=== PATIENT | female | born 1945 | race Caucasian/White ===

== ENCOUNTER → 2018-02-03 | Outpatient (CLI) | payer OTHER ==
[~2018-02-03] MED LIST: ATOR40TA71 PO; FAMO-135 PO; GLIM2TAB3 PO; LISI1TAB11 PO; METF10004 PO; METO-391 PO
== END | disposition home or self-care (01) ==
LOC: SHCH 08:37
PROVIDERS: ATTEND Internal Medicine Cardiovascular Disease
DX: I10 Essential (primary) hypertension (principal); I35.1 Nonrheumatic aortic (valve) insufficiency; Z95.0 Presence of cardiac pacemaker
CPT/HCPCS: 93306

== ENCOUNTER → 2018-04-07 | Outpatient (CLI) | payer OTHER | END | disposition home or self-care (01) | LOC: RAH 08:33 | PROVIDERS: ATTEND Family Medicine | DX: Z12.31 Encounter for screening mammogram for malignant neoplasm of breast (principal) | CPT/HCPCS: 77067 ==

== ENCOUNTER → 2019-05-25 | Outpatient (CLI) | payer OTHER ==
[~2019-05-25] MED LIST changes: +METF-446 PO; -METF10004 PO
== END | disposition home or self-care (01) ==
LOC: RAH 13:52
PROVIDERS: ATTEND Family Medicine
DX: Z12.31 Encounter for screening mammogram for malignant neoplasm of breast (principal)
CPT/HCPCS: 77067

== ENCOUNTER → 2019-06-22 | Outpatient (CLI) | payer OTHER | END | disposition home or self-care (01) | LOC: SHCH 15:18 | PROVIDERS: ATTEND Internal Medicine Cardiovascular Disease | DX: I35.8 Other nonrheumatic aortic valve disorders (principal) | CPT/HCPCS: 93306 ==

== ENCOUNTER → 2019-09-17 | Outpatient (CLI) | payer OTHER ==
[~2019-09-17] MED LIST changes: +ASPI-1012 PO; +CALC-866 PO; -GLIM2TAB3 PO; +GLIM2TAB4 PO; -LISI1TAB11 PO; +LISI1TAB28 PO
== END | disposition home or self-care (01) ==
LOC: SHCH 10:43
PROVIDERS: ATTEND Internal Medicine Cardiovascular Disease
DX: I65.23 Occlusion and stenosis of bilateral carotid arteries (principal)
CPT/HCPCS: 93880

== ENCOUNTER → 2019-09-20 | Outpatient (CLI) | payer OTHER ==
[~2019-09-20] VITALS: Ht 170.2 cm; Wt 90.7 kg
[~2019-09-20] MED LIST changes: -ASPI-1012 PO; -CALC-866 PO; +REGADENOSON 0.4 MG/5 ML PF SYG IVP SCH
== END | disposition home or self-care (01) ==
LOC: SHCH 09:21
PROVIDERS: ATTEND Internal Medicine Cardiovascular Disease
DX: R94.31 Abnormal electrocardiogram [ECG] [EKG] (principal)
CPT/HCPCS: 78452; 93017; 96374; A9500 ×2; J2785

== ENCOUNTER 2019-10-04 05:54 | Day surgery (SDC) | payer OTHER ==
[2019-10-02 12:02] VITALS: BP 146/62
[2019-10-02 12:05] LABS: BASOPHILS % (AUTO) 0.7 % (0.0-5.0); EOSINOPHILS % (AUTO) 1.6 % (0.0-8.0); HEMATOCRIT 38.4 % (36-48); LYMPHOCYTES % (AUTO) 23.1 % (21.0-51.0); MEAN CORPUSCULAR HEMOGLOBIN 31.9 pg (27.0-33.0); MEAN CORPUSCULAR HGB CONC 34.6 g/dL (32.0-36.0); MEAN CORPUSCULAR VOLUME 92.1 fL (79-99); MONOCYTES % (AUTO) 6.8 % (3.0-13.0); NEUTROPHILS % (AUTO) 67.8 % (40.0-77.0); PLATELET COUNT (AUTO) 126 K/uL (130-400); RED BLOOD CELL COUNT(AUTO) 4.17 MIL/uL (4.00-5.50); RED CELL DISTRIBUTION WIDTH 13.1 % (11.0-15.5); WHITE BLOOD COUNT (AUTO) 8.4 K/uL (4.8-10.8)
[2019-10-02 12:23] LABS: CREATININE 0.9 mg/dL (0.5-1.5); POTASSIUM 3.9 mmol/L (3.5-5.1)
[2019-10-02 12:28] LABS: INR 1.02 (0.85-1.15); PARTIAL THROMBOPLASTIN TIME 26.6 SEC (26.3-35.5); PROTHROMBIN TIME 10.7 SEC (9.6-11.6)
--- NOTE | 2019-10-03 11:46 | NUR ---
LABS ABNORMAL PLT REPORTED TO KALINA OZUNA, NO FURTHER ORDERS GIVEN, OK TO PROCEED WITH PLANNED PROCEDURE
[~2019-10-04] VITALS: Ht 168.9 cm; Wt 89.4 kg
[2019-10-04] VITALS (10 sets, daily range): BP systolic 113–161; BP diastolic 43–73
[~2019-10-04 05:54] MED LIST changes: +ASPI-1012 PO; +CALC-866 PO; -FAMO-135 PO; -GLIM2TAB4 PO; -REGADENOSON 0.4 MG/5 ML PF SYG IVP SCH; +SODIUM CHLORIDE 0.9% 1000ML 1,000 ML IV SCH
--- NOTE | 2019-10-04 06:15 | NUR ---
PRE-PROCEDURE RECEIVED FROM HOME VIA AMBULATING TO DAY 15 FOR SCHEDULED DUAL PPM CHANGEOUT. AWAKE IN NO ACUTE DISTRESS. DENIES PAIN. CONNECTED TO CONTINUOUS CARDIOPULMONARY MONITORING. SIDE RAILS UP X2, BED IN LOWEST POSITION, AND CALL LIGHT W/IN REACH.
--- NOTE | 2019-10-04 07:15 | NUR ---
PROCEDURE TRANSFERRED TO TRASH COLLECTOR TRUCK DRIVER VIA BED FOR DUAL PPM CHANGEOUT BY CASSIE GARCIA RN.
[2019-10-04] MEDS ORDERED: MEPERIDINE-PF 25 MG/ML SYG ONE ×3 (07:32→08:31)
[2019-10-04] MEDS ORDERED: CEFAZOLIN SODIUM 1 GM VIAL ONE ×2 (07:32→07:33)
[2019-10-04] MEDS ORDERED: LIDOCAINE HCL 1% MDV 50ML VIAL ONE (07:32)
[2019-10-04] MEDS ORDERED: BUPIVACAINE/PF 0.25% 30ML VIAL IJ ONE (07:32)
[2019-10-04] MEDS ORDERED: MIDAZOLAM HCL 1 MG/ML 2ML VIAL ONE ×3 (07:32→08:31)
[2019-10-04] MEDS ORDERED: OCTYL 2-CYANOACRYLATE 1 EACH TP ONE (08:26)
[2019-10-04] MEDS ORDERED: ONDANSETRON HCL 4 MG/2 ML VIAL IV PRN (09:00)
[2019-10-04] MEDS ORDERED: GLUCAGON 1MG KIT 1 MG ML IM PRN (09:00)
[2019-10-04] MEDS ORDERED: ACETAMINOPHEN-CODEINE 300/30MG TAB PO PRN ×2 (09:00)
[2019-10-04] MEDS ORDERED: DEXTROSE 50%-WATER 50 ML DISP.SYRIN IV PRN (09:00)
--- NOTE | 2019-10-04 09:10 | NUR ---
POST-PROCEDURE RECEIVED FROM REHABILITATION SERVICES MANAGER S/P DUAL PPM CHANGEOUT VIA BED TO DAY 15. DROWSY, BUT AROUSABLE. CONNECTED TO CONTINUOUS CARDIOPULMONARY MONITORING. DRESSING TO LEFT CHEST WALL CLEAN, DRY, AND INTACT. SIDE RAILS UP X2, BED IN LOWEST POSITION, AND CALL LIGHT W/IN REACH.
[2019-10-04] MEDS ORDERED: ATROPINE SULFATE 0.1 MG/ML 10 ML SYG IVP ONE (10:23)
[2019-10-04] MEDS ORDERED: INSULIN HUMULIN R 100 UNIT/ML 3ML SQ SCH (11:30)
[2019-10-04] MEDS ORDERED: CEFAZOLIN SODIUM 1 GM VIAL IVP SCH (14:00)
--- NOTE | 2019-10-04 14:05 | NUR ---
DISCHARGE DAY PT DISCHARGE INSTRUCTION SHEET, MED REC, AND PT SUMMARY REVIEWED WITH PT. VERBALIZED UNDERSTANDING. EDUCATED ON KEEPING DRESSING CLEAN, DRY, AND INTACT UNTIL F/U WITH DR. ZAPIEN, AVOID HEAVY LIFTING. PT VERBALIZED UNDERSTANDING. OPPORTUNITY GIVEN TO ASK QUESTIONS. NO QUESTIONS OR CONCERNS VOICED.
--- NOTE | 2019-10-04 14:10 | NUR ---
DISCHARGE DISCHARGED VIA W/C. AWAKE IN NO ACUTE DISTRESS. DRESSING TO LEFT CHEST WALL CLEAN, DRY, AND INTACT.
== END 2019-10-04 14:10 | disposition home or self-care (01) ==
LOC: DAH 05:54
PROVIDERS: ATTEND Internal Medicine Cardiovascular Disease
DX: I49.5 Sick sinus syndrome (principal); E11.9 Type 2 diabetes mellitus without complications; E78.5 Hyperlipidemia, unspecified; I10 Essential (primary) hypertension; Z79.84 Long term (current) use of oral hypoglycemic drugs; Z79.899 Other long term (current) drug therapy; Z79.01 Long term (current) use of anticoagulants
CPT/HCPCS: 33228; 36415; 80048; 82948 ×2; 85025; 85610; 85730; 93005; A4215; A4216; A4221; A4222; A4223 ×3; A4606; A4663; C1785; J0690 ×3; J2175 ×3; J2250 ×3; J3490 ×2; J7030; 99156; 99157; J0461

== ENCOUNTER → 2019-10-08 | Outpatient (CLI) | payer OTHER, MEDICARE ==
[~2019-10-08] MED LIST changes: -SODIUM CHLORIDE 0.9% 1000ML 1,000 ML IV SCH
== END | disposition home or self-care (01) ==
LOC: OIH 09:51
PROVIDERS: ATTEND Family Medicine
DX: M75.02 Adhesive capsulitis of left shoulder (principal); M19.012 Primary osteoarthritis, left shoulder
CPT/HCPCS: 73030

== ENCOUNTER → 2020-04-22 | Outpatient (CLI) | payer OTHER, MEDICARE | END | disposition home or self-care (01) | LOC: OIH 10:22 | PROVIDERS: ATTEND Family Medicine | DX: Z01.818 Encounter for other preprocedural examination (principal); Z95.0 Presence of cardiac pacemaker | CPT/HCPCS: 71046 ==

== ENCOUNTER 2020-05-20 05:26 | Observation (INO) | payer OTHER, MEDICARE ==
[2020-05-14 13:35] LABS: APPEARANCE,URINE Clear (CLEAR); BILIRUBIN,URINE Negative (NEGATIVE); COLOR,URINE Dark Yellow (YELLOW); GLUCOSE, URINE (UA) Negative (NEGATIVE); KETONES,URINE Trace mg/dL (NEGATIVE); LEUKOCYTE ESTERASE ,URINE Negative (NEGATIVE); NITRATE,URINE Negative (NEGATIVE); OCCULT BLOOD,URINE Negative (NEGATIVE); PROTEIN,URINE Negative (NEGATIVE)
[2020-05-14 13:36] LABS: BASOPHILS % (AUTO) 0.7 % (0.0-5.0); EOSINOPHILS % (AUTO) 1.8 % (0.0-8.0); HEMATOCRIT 37.3 % (36-48); LYMPHOCYTES % (AUTO) 31.4 % (21.0-51.0); MEAN CORPUSCULAR HEMOGLOBIN 31.8 pg (27.0-33.0); MEAN CORPUSCULAR VOLUME 93.3 fL (79-99); MONOCYTES % (AUTO) 7.1 % (3.0-13.0); NEUTROPHILS % (AUTO) 58.8 % (40.0-77.0); PLATELET COUNT (AUTO) 128 K/uL (130-400); WHITE BLOOD COUNT (AUTO) 5.7 K/uL (4.8-10.8)
[2020-05-14 13:41] LABS: POTASSIUM 3.7 mmol/L (3.5-5.1)
[2020-05-14 13:43] LABS: INR 1.06 (0.85-1.15); PARTIAL THROMBOPLASTIN TIME 25.3 SEC (26.3-35.5); PROTHROMBIN TIME 11.4 SEC (9.6-11.6)
[2020-05-19 10:42] VITALS: BP 159/55
[~2020-05-20] VITALS: Ht 167.6 cm; Wt 92.4 kg
[2020-05-20] VITALS (28 sets, daily range): BP systolic 112–167; BP diastolic 55–82
[~2020-05-20 05:26] MED LIST changes: -ASPI-1012 PO; +BACL10TA PO; +BRIM10DR16 OP; -CALC-866 PO; +DICL2100G TP; +FLUT16H NASAL; +GLIM2TAB30 PO; -LISI1TAB28 PO; +LISI1TAB51 PO
[2020-05-20] MEDS: CEFAZOLIN SODIUM 1 GM VIAL IVP SCH ×2 (06:00→07:45)
[2020-05-20] MEDS ORDERED: SODIUM CHLORIDE 0.9% 1000ML 1,000 ML IV ONE (06:49)
[2020-05-20] MEDS ORDERED: GLYCOPYRROLATE 1 MG/5 ML SYRINGE ONE (07:37)
[2020-05-20] MEDS ORDERED: NEOSTIGMINE 5MG/5ML SYR IV ONE (07:37)
[2020-05-20] MEDS ORDERED: ONDANSETRON HCL 4 MG/2 ML VIAL ONE (07:37)
[2020-05-20] MEDS ORDERED: LIDOCAINE PF 2% 5ML ABBOJECT ONE (07:37)
[2020-05-20] MEDS ORDERED: DEXAMETHASONE SOD PHOSPHATE 10MG/ML 1ML VIAL ONE (07:37)
[2020-05-20] MEDS ORDERED: SUCCINYLCHOLINE CHLORIDE 20 MG/ML 10 ML VIAL ONE (07:37)
[2020-05-20] MEDS ORDERED: PROPOFOL 10 MG/ML 20ML VIAL IV ONE (07:37)
[2020-05-20] MEDS ORDERED: MIDAZOLAM HCL 1 MG/ML 2ML VIAL ONE (07:38)
[2020-05-20] MEDS ORDERED: ROCURONIUM 10MG/1ML SYR 10 MG/ML ML ONE (07:38)
[2020-05-20] MEDS ORDERED: FENTANYL CITRATE PF 50 MCG/1 ML 2ML VIAL ONE (07:38)
[2020-05-20] MEDS ORDERED: ONDANSETRON HCL 4 MG/2 ML VIAL IVP PRN (09:45)
[2020-05-20] MEDS: HYDROCHLOROTHIAZIDE 25 MG TABLET PO SCH (09:45)
[2020-05-20] MEDS: ACETAMINOPHEN EXTRA STRENGTH 500 MG TABLET PO SCH ×4 (09:45→19:56)
[2020-05-20] MEDS ORDERED: MEPERIDINE-PF 25 MG/ML SYG ONE (10:12)
[2020-05-20] MEDS: SODIUM CHLORIDE 0.9% 1000ML 1,000 ML IV SCH ×2 (11:33→20:11)
[2020-05-20] MEDS ORDERED: MORPHINE SULFATE 4 MG/1ML SYG IVP PRN (13:30)
[2020-05-20] MEDS ORDERED: TRAMADOL HCL 50 MG TABLET PO PRN (13:30)
[2020-05-20] MEDS ORDERED: OXYCODONE HCL 5 MG TAB PO PRN (13:30)
[2020-05-20] MEDS ORDERED: KETOROLAC TROMETHAMINE 15MG/ML IV PRN (13:30)
[2020-05-20] MEDS: OXYCODONE HCL 5 MG TAB PO PRN (14:00)
[2020-05-20] MEDS ORDERED: METFORMIN HCL 500 MG TABLET ONE (14:01)
[2020-05-20] MEDS ORDERED: CEFAZOLIN SODIUM 1 GM VIAL IVP SCH ×2 (14:45→16:00)
[2020-05-20] MEDS: METFORMIN HCL 500 MG TABLET PO SCH (16:23)
--- NOTE | 2020-05-20 17:00 | NUR ---
MET WITH PATIENT AT BEDSIDE FOR DC PLANNING S/P TKA, STATES FEELS GREAT, PATIENT STATES LIVES WITH SPOUSE, IS INDEPENDENT AND ACTIVE, WITH NO DME, DRIVES, AND HOME IS SAFE & ACCESSIBLE. SPOUSE TO PROVIDE TRANSPORT HAS ALREADY RECEIVED HER STD WALKER , ITS AT HOME , AND DOES NOT NEED ANYTHING ELSE. ADVISED PATIENT THAT DR. CEBALLOS DOES ARRANGE OWN HOME HEALTH, BUT A TRIGGER CAME UP FOR CASE MAMANGERMENT FOR DC PLANNING., CM TO CALL OFFICE IN AM AND FIND OUT WHAT HOME HEALTH WAS ASSIGNED TO SO WE CAN CALL REPORT VERBAL GIA FOR ANY HOME HEALTH THAT WAS ARRANGED BY DR. TUCKER HAZEL TO FOLLOW Addendum: 05/21/20 at 0837 by ARTIS RICHEY RN CM Amended: Links added.
[2020-05-20] MEDS: ASPIRIN 81 MG EC TAB PO SCH (19:56)
[2020-05-20] MEDS: METOPROLOL SUCCINATE 50 MG TAB.SR.24H PO SCH (19:56)
[2020-05-20] MEDS: BACLOFEN 10 MG TABLET PO SCH (19:56)
[2020-05-20] MEDS: CELECOXIB 200 MG CAP PO SCH (19:56)
[2020-05-20] MEDS ORDERED: DORZOLAMIDE OP SCH (21:00)
[2020-05-20] MEDS ORDERED: BRIMONIDINE OP SCH (21:00)
[2020-05-21 03:43] VITALS: BP 134/63
[2020-05-21] MEDS: SODIUM CHLORIDE 0.9% 1000ML 1,000 ML IV SCH (05:32)
[2020-05-21] MEDS: ACETAMINOPHEN EXTRA STRENGTH 500 MG TABLET PO SCH ×2 (05:33→15:02)
[2020-05-21] MEDS ORDERED: GLIMEPIRIDE 2 MG TABLET PO SCH (07:30)
[2020-05-21] MEDS: BACLOFEN 10 MG TABLET PO SCH (08:16)
[2020-05-21] MEDS: ASPIRIN 81 MG EC TAB PO SCH (08:16)
[2020-05-21] MEDS: OXYCODONE HCL 5 MG TAB PO PRN (08:16)
[2020-05-21] MEDS: CELECOXIB 200 MG CAP PO SCH (08:16)
[2020-05-21] MEDS: HYDROCHLOROTHIAZIDE 25 MG TABLET PO SCH (08:17)
[2020-05-21] MEDS: METOPROLOL SUCCINATE 50 MG TAB.SR.24H PO SCH (08:18)
[2020-05-21] MEDS: METFORMIN HCL 500 MG TABLET PO SCH (08:18)
[2020-05-21] MEDS ORDERED: LISINOPRIL 20 MG TABLET PO SCH (09:00)
[2020-05-21 09:16] VITALS: BP 127/64
[2020-05-21 11:56] VITALS: BP 114/61
--- NOTE | 2020-05-21 14:01 | NUR ---
CM Note: [facility] approval CM spoke to Zaira lopez/[facility], verified Dr Vasques's office set up HH w/[facility]. Pt has approval. Pt has own DME's, safe to dc home via private car. Primary nurse aware, to give report to [facility] once pt ready to DC. CM to cont to follow up.
--- NOTE | 2020-05-21 16:26 | NUR ---
called to dr yang for dc orders and wound care orders. pending call back
[2020-05-21 17:04] VITALS: BP 152/67
--- NOTE | 2020-05-21 17:19 | NUR ---
[id number] PATIENT SIGNED DOWLING LETTER, I FAXED DOWLING LETTER TO [id number] AND PLACED IN CHART UNDER CONSENT TAB
--- NOTE | 2020-05-21 18:25 | NUR ---
DISCHARGE INSTRUCTION PROVIDED TO PATIENT ALONG WITH MEDICATION RECONCILIATION FOR HOME MEDICATIONS TO CONT , INCLUDING TO CONT TO TAKE ASA INDICATED BY THE DOCTOR AND FOLLOW UP ON HOW LONG TO CONT NEED FOR ANTICOAGULATION .
[2020-05-21] MEDS ORDERED: ASPI-556 PO (19:03)
--- NOTE | 2020-05-21 20:05 | NUR ---
PICA DRESSING CHANGED WITH ASSIST FROM NIGHT NURSE. BATTERY PACK WORKING. PATIENT LEFT ROSANA WRAP OFF . INSTRUCTED PATIENT TO CONT HOME MEDICATION TAKE ASA 81MG TWICE A DAY WELL..PATIENT VERBALIZED UNDERSTANDING
[2020-05-23] MEDS ORDERED: BISACODYL 10 MG SUPP.RECT RC PRN (09:45)
== END 2020-05-21 20:10 | disposition home or self-care (01) ==
LOC: DAH 05:26 → 3DH 05:27
PROVIDERS: ADMIT Orthopaedic Surgery; ATTEND Orthopaedic Surgery
DX: M17.12 Unilateral primary osteoarthritis, left knee (principal)
CPT/HCPCS: 27487; 36415 ×2; 80048; 81003; 82948 ×7; 85025; 85610; 85730; 86850; 86900; 86901; 87641; 88305; 88311; 96374; 96375; 97039 ×3; 97116 ×2; 97161; 97530 ×2; A4213; A4215; A4221; A4222; A4223; A4450; A4649 ×6; A4663; A4930 ×2; A5120; A6223; A6260; A9272; C1776; G0378 ×20; G8979; G8980; G8981; G8982; G8983; J0330; J0690 ×2; J1100; J1885; J2001; J2175; J2250; J2405; J2704; J2710; J3010; J3490; J7030 ×4; U0003

== ENCOUNTER → 2020-08-25 | Outpatient (CLI) | payer OTHER, MEDICARE ==
[~2020-08-25] MED LIST changes: +ASPI-556 PO
== END | disposition home or self-care (01) ==
LOC: RAH 10:50
PROVIDERS: ATTEND Family Medicine
DX: Z12.31 Encounter for screening mammogram for malignant neoplasm of breast (principal)
CPT/HCPCS: 77067

== ENCOUNTER → 2022-06-09 | Outpatient (CLI) | payer OTHER, MEDICARE | END | disposition home or self-care (01) | LOC: SHCH 14:36 | PROVIDERS: ATTEND Internal Medicine Cardiovascular Disease | DX: I08.0 Rheumatic disorders of both mitral and aortic valves (principal); I11.9 Hypertensive heart disease without heart failure; I25.10 Atherosclerotic heart disease of native coronary artery without angina pectoris; I47.1 Supraventricular tachycardia; I49.5 Sick sinus syndrome; E11.9 Type 2 diabetes mellitus without complications; E78.5 Hyperlipidemia, unspecified | CPT/HCPCS: 93306 ==

== ENCOUNTER → 2022-06-14 | Outpatient (CLI) | payer OTHER, MEDICARE ==
[~2022-06-14] MED LIST changes: +REGADENOSON 0.4 MG/5 ML PF SYG IVP SCH
== END | disposition home or self-care (01) ==
LOC: SHCH 08:37
PROVIDERS: ATTEND Internal Medicine Cardiovascular Disease
DX: R94.31 Abnormal electrocardiogram [ECG] [EKG] (principal); I10 Essential (primary) hypertension; E78.5 Hyperlipidemia, unspecified; E11.9 Type 2 diabetes mellitus without complications; Z95.0 Presence of cardiac pacemaker
CPT/HCPCS: 78452; 96374; 93017; J2785; A9500 ×2

== ENCOUNTER → 2023-07-27 | Outpatient (CLI) | payer OTHER, MEDICARE ==
[~2023-07-27] MED LIST changes: -REGADENOSON 0.4 MG/5 ML PF SYG IVP SCH
== END | disposition home or self-care (01) ==
LOC: RAH 08:36
PROVIDERS: ATTEND Family Medicine
DX: N28.1 Cyst of kidney, acquired (principal); R10.32 Left lower quadrant pain; K57.92 Diverticulitis of intestine, part unspecified, without perforation or abscess without bleeding; I70.0 Atherosclerosis of aorta; Z90.49 Acquired absence of other specified parts of digestive tract
CPT/HCPCS: 76700; 76857

== ENCOUNTER → 2024-12-03 | Outpatient (CLI) | payer OTHER, MEDICARE ==
--- NOTE | 2024-12-05 08:20 | HMCSR ---
APPROVED REPORT EXAM: Two-dimensional and M-mode echocardiogram with Doppler and color Doppler. INDICATION ICD: I10.0 Essential (primary) Hypertension 2D Dimensions RVDd4.1 cmLVEF(%)53.2 (>50%)LVED Vol(simp.)117.0 mL IVSd1.3 (0.7-1.1cm)FS(%)27 %LVES Vol(simp.)51.0 mL LVDd4.7 (3.8-5.6cm)Ao Root(2D)3.1 (2.0-3.7cm)LVEF(%, simp.)56 % PWd1.2 (0.7-1.1cm)LVOT diam2.3 (1.8-2.4cm)LA ESV INDEX (BP)38.02 mL/m2 LVDs3.4 (2.5-4.0cm) Aortic Valve AoV Vmax1.9 m/Kyle Peak GR14.0 mmHgLVOT Vmax0.9 m/s AoV VTI0.4 mAo Mean GR7.2 mmHgLVOT VTI0.18 m TAYLOR (VMAX)1.7 cm2Al P1/2T486 msAVA (VTI) 1.7 cm2 Mitral Valve MV E Vmax38.1 cm/sDECEL Dfjy624 ms MV A Vmax89.2 cm/sP 1/2 T87 ms E/A ratio0.4MVA (PHT)2.5 cm2 MR Max PG97 mmHg TDI E/E' Yjhwdp70.1E/E' Sclonne57.4 Pulmonary Valve PV Vmax0.7 m/sPV VTI0.17 m Tricuspid Valve TR Vmax2.6 m/sRAP (EST) 3 kfEeAHGE73.1 mmHg TR Peak GR26.1 mmHg Left Ventricle Left ventricular cavity size is normal. Dyssynchronous wall motion. There is mild concentric left ivonne tricular hypertrophy. Sigmoid septum is present. LVEF is 50-55%. No left ventricle thrombus noted on this study. Grade 1 diastolic dysfunction Right Ventricle The right ventricle is borderline dilated. The right ventricular systolic function is normal. Atria The left atrium is mildly dilated. The atrial septum is aneurysmal. The right atrium is mildly dilate d. Aortic Valve The aortic valve is moderately calcified, and may be functionally bicuspid. Mild aortic regurgitation . AV Dimensionless Index is 0.40 Calculated aortic valve area is 1.7 cm2 with maximum pressure gradie nt of 14 mmHg and mean pressure gradient of 7.2 mmHg. Mitral Valve Mitral valve leaflets are mildly sclerotic but open well. Mitral annular calcification is mild. Alaina l regurgitation is trace to mild. There is no mitral valve stenosis. Tricuspid Valve Calcified nodule measuring 0.6 X 0.6 CM on the posterior tricuspid leaflet. There is trace to mild tr icuspid regurgitation. Pulmonic Valve Pulmonic valve is not well visualized. Great Vessels The aortic root is normal in size. The IVC is normal in size and collapses >50% with inspiration. Pericardium No pericardial effusion. Conclusion Left ventricular cavity size is normal. There is mild concentric left ventricular hypertrophy. Sigmoid septum is present. LVEF is 50-55%. Grade 1 diastolic dysfunction Dyssynchronous wall motion. The right ventricle is borderline dilated. The left atrium is mildly dilated. The right atrium is mildly dilated. The atrial septum is aneurysmal. The aortic valve is moderately calcified, and may be functionally bicuspid. Mild aortic regurgitation. Calculated aortic valve area is 1.7 cm2 with maximum pressure gradient of 14 mmHg and mean pressure g radient of 7.2 mmHg. Mitral valve leaflets are mildly sclerotic but open well. Mitral annular calcification is mild. Mitral regurgitation is trace to mild. Calcified nodule measuring 0.6 X 0.6 CM on the posterior tricuspid leaflet. There is trace to mild tricuspid regurgitation. The aortic root is normal in size. The IVC is normal in size and collapses >50% with inspiration. No pericardial effusion.
== END | disposition home or self-care (01) ==
LOC: SHCH 08:16
PROVIDERS: ATTEND Internal Medicine Cardiovascular Disease
DX: I08.3 Combined rheumatic disorders of mitral, aortic and tricuspid valves (principal); I10 Essential (primary) hypertension
CPT/HCPCS: 93306